=== PATIENT | male | born 1955 | race Caucasian/White ===

== ENCOUNTER 2016-06-11 06:20 | Emergency (ER) | payer MEDICARE, MEDICAID ==
--- NOTE | 2016-06-11 07:06 | ER Document Report ---
HPI - HPI Patient complains to provider of: left low back pain Onset: Other - chronic Onset/Duration: Sudden Pain Level: 5 Context: 61 year old male with chronic back pain which is worse past few days. No IV drug use, no fever or chills, no abdominal pain. Had sex the other day which aggavated it. On vacation here in [place]. No saddle anesthesia. No radiculopathy. Associated Symptoms: None Exacerbated by: Movement Relieved by: Other - supine or stadning - ROS ROS below otherwise negative: Yes Systems Reviewed and Negative: Yes All other systems reviewed and negative - REPRODUCTIVE Reproductive: DENIES: : - DERM Skin Color: Normal Skin Problems: None Past Medical History - General Information source: Patient - Social History Smoking Status: Never Smoker Frequency of alcohol use: None Family History: Other - Unable to obtain Pulmonary Medical History: Denies: Hx Tuberculosis Neurological Medical History: Reports: Hx Seizures Renal/ Medical History: Denies: Hx Peritoneal Dialysis Surgical Hx: Negative - Immunizations Hx Diphtheria, Pertussis, Tetanus Vaccination: - Unknown Vertical Provider Document - CONSTITUTIONAL Agree With Documented VS: Yes Exam Limitations: No Limitations General Appearance: Mild Distress - NECK Neck: Supple - RESPIRATORY Respiratory: Breath Sounds Normal, No Respiratory Distress O2 Sat by Pulse Oximetry: 95 - CARDIOVASCULAR Cardiovascular: Regular Rate, Regular Rhythm - GI/ABDOMEN Gastrointestinal: Abdomen Soft, Abdomen Non-Tender - BACK Back: Normal Inspection Notes: tender leaft lumbar muscles. - MUSCULOSKELETAL/EXTREMETIES Musculoskeletal/Extremeties: MAEW, FROM - NEURO Level of Consciousness: Awake, Alert, Appropriate Motor/Sensory: No Motor Deficit, No Sensory Deficit Deep Tendon Reflexes: 2+ - wilder ankle and patellar - DERM Integumentary: Warm, Dry, No Rash Course - Vital Signs Vital signs: Temp Pulse Resp BP Pulse Ox 97.6 F 69 14 121/86 H 95 06/11/16 06:29 06/11/16 06:29 06/11/16 06:29 06/11/16 06:29 06/11/16 06:29 Discharge - Discharge Clinical Impression: exacerbation of chronic lt low back pain Condition: Good Disposition: HOME, SELF-CARE Instructions: Low Back Pain ([facility]), Warm Packs ([facility]), Oral Narcotic Medication ( [facility]), Muscle Strain ([facility]), Steroid Medication Additional Instructions: Warm compress Return to the emergency room if worse while visiting to this area Please complete the patient satisfaction survey if you get one, and return it.. If you do not receive a survey, then you can go to the [facility] website, [email or web address] and place your comments about your very good care. Thank you very much. It was a pleasure being your medical provider today. Prescriptions: Oxycodone HCl/Acetaminophen [Percocet 10-325 Mg Tablet] 1 each PO Q4HP PRN #15 tablet PRN Reason: Prednisone [Deltasone 10 mg Tablet] 10 mg PO ASDIR PRN #15 tablet PRN Reason: Referrals: ERIC ALCANTAR MD [Primary Care Provider] - Follow up as needed
[2016-06-11] MEDS ORDERED: ONDANSETRON 4 MG TAB.RAPDIS PO ONE (07:34)
[2016-06-11] MEDS ORDERED: PREDNISONE 20 MG TABLET PO ONE (07:34)
[2016-06-11] MEDS ORDERED: OXYCODONE-ACETAMINOPHEN 5-325 MG TABLET PO ONE (07:34)
[2016-06-11 08:28] VITALS: BP 144/91
== END 2016-06-11 08:26 | disposition home or self-care (01) ==
LOC: ER 06:20
DX: G89.29 Other chronic pain (principal); M54.5 Low back pain
CPT/HCPCS: 99283; A9270 ×3; J7512; S0119

== ENCOUNTER 2018-02-19 10:38 | Observation (INO) | payer MEDICARE, MEDICAID ==
--- NOTE | 2018-02-19 11:03 | EKG REPORT ---
SEVERITY:- NORMAL ECG - SINUS RHYTHM : Confirmed by: Jose Valle MD 19-Feb-2018 11:02:17
[2018-02-19] MEDS ORDERED: HYDROCODONE/ACETAMINOPHEN 5-325 MG TABLET PO ONE (11:06)
[2018-02-19] MEDS ORDERED: ASPIRIN 81 MG TABLET, CHEWABLE PO ONE (11:06)
--- NOTE | 2018-02-19 11:09 | ER Document Report ---
ED Cardiac - General Chief Complaint: Chest Pain Stated Complaint: CHEST PAIN Time Seen by Provider: 02/19/18 11:02 Notes: History of Present Illness Chief Complaint:[ chest pain] [ 63 years old male was sent over here by Dr. Alcantar, for direct admit. The patient was having pain over the left precordial region for the last 2 days. Sometimes exacerbated, sharp in nature. Nonradiating. Not associated with any left arm numbness tingling sensation nausea vomiting. Change of position increases the pain.] History obtained from [patient] Symptoms began:[ today] Onset: [gradual] Timing: [constant, now gone] Quality: ["pain"] Intensity: [moderate] Location: [Left anterior lower chest wall] Radiation: [none] Migration: [none] Aggravating factors: [none] Relieving factors: [none] Major PE risk factors: [none] Major aortic dissection risk factors: [none] Review of Systems: All other systems negative as reviewed. CONSTITUTIONAL No fever, No chills, No sweats. EYES No eye pain. ENT No URI symptoms, No sore throat, No ear pain. CARDIOVASCULAR + chest pain, No palpitations, No edema. RESPIRATORY No Cough, No SOB, No wheezing. GASTROINTESTINAL No abdominal pain, No nausea, No diarrhea, No vomiting, No GI Bleeding. GENITOURINARY No UTI symptoms. MUSCULOSKELETAL No back pain, No calf swelling, No calf pain. SKIN No Rash. NEUROLOGIC No Headache Physical Exam CONSTITUTIONAL Vital signs reviewed, Patient appears comfortable, Alert and oriented X 3, Normal stature. HEAD Atraumatic, Normocephalic. EYES Eyes are normal to inspection, No discharge from eyes, Extraocular muscles intact, Sclera are normal, Conjunctiva are normal. ENT Ears normal to inspection, Nose examination normal, Posterior pharynx normal, Mouth normal to inspection. NECK Normal ROM, No jugular venous distention, No meningeal signs, no carotid bruit. RESPIRATORY CHEST Chest is anteriorly over the seventh and eighth ribs close to the sternum extremely tender on palpation., Breath sounds normal, No respiratory distress. CARDIOVASCULAR RRR, No murmurs, Normal S1 S2, No rub, No gallop. ABDOMEN Abdomen is nontender, No pulsatile masses, No other masses, Bowel sounds normal, No distension, No peritoneal signs, No hernias. BACK There is no CVA Tenderness, There is no tenderness to palpation, Normal inspection. UPPER EXTREMITY Inspection normal, No cyanosis, No clubbing, No edema, 2+ radial pulses. LOWER EXTREMITY Inspection normal, No cyanosis, No clubbing, No edema, No calf tenderness, 2+ femoral pulses. NEURO No focal motor deficits, No focal sensory deficits, Speech normal. SKIN Skin is warm, Skin is dry, Skin is normal color. LYMPHATIC No adenopathy in neck. PSYCHIATRIC Normal affect. - HPI Notes: Dictated - Related Data Allergies/Adverse Reactions: No Known Allergies Allergy (Verified 02/19/18 10:39) Past Medical History - Social History Smoking Status: Current Every Day Smoker Chew tobacco use (# tins/day): No Frequency of alcohol use: None Drug Abuse: None Lives with: Family Family History: Reviewed & Not Pertinent, Other - Unable to obtain Patient has suicidal ideation: No Patient has homicidal ideation: No - Past Medical History Cardiac Medical History: Reports: Hx Hypercholesterolemia, Hx Hypertension Pulmonary Medical History: Denies: Hx Tuberculosis Neurological Medical History: Reports: Hx Seizures Renal/ Medical History: Denies: Hx Peritoneal Dialysis Psychiatric Medical History: Reports: Hx Depression - anxiety - Immunizations Hx Diphtheria, Pertussis, Tetanus Vaccination: - Unknown Review of Systems - Review of Systems Notes: Dictated Physical Exam - Vital signs Vitals: Temp Pulse Resp BP Pulse Ox 97.8 F 65 16 134/84 H 96 02/19/18 10:47 02/19/18 10:47 02/19/18 10:47 02/19/18 10:47 02/19/18 10:47 - Notes Notes: Dictated Course - Vital Signs Vital signs: Temp Pulse Resp BP Pulse Ox 97.8 F 65 16 134/84 H 96 02/19/18 10:47 02/19/18 10:47 02/19/18 10:47 02/19/18 10:47 02/19/18 10:47 Discharge - Discharge Clinical Impression: Chest pain, rule out acute myocardial infarction Condition: Fair Disposition: ADMITTED INPATIENT Admitting Provider: Martir Unit Admitted: [facility] Referrals: ERIC ALCANTAR MD [Primary Care Provider] - Follow up as needed
[2018-02-19] MEDS ORDERED: CLOPIDOGREL BISULFATE 300 MG TABLET PO ONE ×2 (12:00→15:30)
[2018-02-19 12:24] LABS: HEMATOCRIT 42.1 % (37.9-51.0); HEMOGLOBIN 14.6 g/dL (13.5-17.0); LYMPHOCYTES % (AUTO) 36.9 % (13-45); MEAN CORPUSCULAR HEMOGLOBIN 32.7 pg (27.0-33.4); MEAN CORPUSCULAR HGB CONC 34.7 g/dL (32.0-36.0); MEAN CORPUSCULAR VOLUME 94 fl (80-97); PLATELET COUNT 239 10^3/uL (150-450); RED BLOOD COUNT 4.47 10^6/uL (4.35-5.55); SEGMENTED NEUTROPHILS % (AUTO) 52.8 % (42-78); WHITE BLOOD COUNT 4.8 10^3/uL (4.0-10.5)
[2018-02-19 12:25] LABS: ABSOLUTE EOSINOPHILS # (AUTO) 0.1 10^3/uL (0.0-0.6); ABSOLUTE LYMPHOCYTES (AUTO) 1.8 10^3/uL (0.5-4.7); ABSOLUTE MONOCYTES (AUTO) 0.4 10^3/uL (0.1-1.4); ABSOLUTE NEUT (AUTO) 2.5 10^3/uL (1.7-8.2); BASOPHILS % (AUTO) 0.9 % (0-2); EOSINOPHILS % (AUTO) 1.5 % (0-6); MONOCYTES % (AUTO) 7.9 % (3-13); TOTAL CELLS COUNTED % (AUTO) 100 %
--- NOTE | 2018-02-19 12:35 | RADIOLOGY REPORT (SQ) ---
EXAM DESCRIPTION: CHEST SINGLE VIEW COMPLETED DATE/TIME: 02/19/2018 12:19 pm REASON FOR STUDY: Chest pain COMPARISON: 06/10/2013 EXAM PARAMETERS: NUMBER OF VIEWS: One view. TECHNIQUE: Single frontal radiographic view of the chest acquired. RADIATION DOSE: NA LIMITATIONS: None. FINDINGS: LUNGS AND PLEURA: No opacities, masses or pneumothorax. No pleural effusion. MEDIASTINUM AND HILAR STRUCTURES: No masses. Contour normal. HEART AND VASCULAR STRUCTURES: Heart normal in size. Normal vasculature. BONES: No acute findings. HARDWARE: None in the chest. OTHER: No other significant finding. IMPRESSION: NO ACUTE RADIOGRAPHIC FINDING IN THE CHEST. TECHNICAL DOCUMENTATION: JOB ID: [id number] [employer]- All Rights Reserved Reading location - IP/workstation name: [email or web address]
[2018-02-19 12:45] LABS: ALANINE AMINOTRANSFERASE 31 U/L (21-72); ALBUMIN 4.7 g/dL (3.5-5.0); ALKALINE PHOSPHATASE 82 U/L (38-126); ANION GAP 8 (5-19); ASPARTATE AMINO TRANSFERASE 24 U/L (17-59); BILIRUBIN,DIRECT 0.1 mg/dL (0.0-0.4); BILIRUBIN,TOTAL 0.4 mg/dL (0.2-1.3); BLOOD UREA NITROGEN 17 mg/dL (7-20); CALCIUM 9.6 mg/dL (8.4-10.2); CARBON DIOXIDE 31 mmol/L (22-30); CHLORIDE 99 mmol/L (98-107); CREATINE KINASE 67 U/L (55-170); GLUCOSE 98 mg/dL (75-110); POTASSIUM 4.7 mmol/L (3.6-5.0); SODIUM 137.6 mmol/L (137-145); TOTAL PROTEIN 7.1 g/dL (6.3-8.2)
[2018-02-19 12:56] LABS: CREATINE KINASE MB 0.49 ng/mL (<4.55)
[2018-02-19 13:02] LABS: FREE T4 (FREE THYROXINE) 0.91 ng/dL (0.78-2.19); TROPONIN I < 0.012 ng/mL
[2018-02-19 13:15] LABS: THYROID STIMULATING HORMONE 1.44 uIU/mL (0.47-4.68)
[2018-02-19 17:28] LABS: APPEARANCE,URINE CLEAR; BILIRUBIN,URINE NEGATIVE (NEGATIVE); COLOR,URINE YELLOW; GLUCOSE, URINE NEGATIVE (NEGATIVE); KETONES,URINE NEGATIVE (NEGATIVE); LEUKOCYTE ESTERASE,URINE NEGATIVE (NEGATIVE); NITRITE,URINE NEGATIVE (NEGATIVE); PROTEIN,URINE NEGATIVE (NEGATIVE); URINE SPECIFIC GRAVITY 1.016; UROBILINOGEN,URINE NEGATIVE mg/dL (<2.0)
[2018-02-19] MEDS ORDERED: (PENDING PHARMACY ID) (Omega-3 Fatty Acids/Fish Oil [Fish Oil 1,000 Mg Capsule] 1 EACH) PO SCH (18:45)
[2018-02-19] MEDS ORDERED: (PENDING PHARMACY ID) (Losartan/Hydrochlorothiazide [Hyzaar 100-12.5 Tablet] 1 EACH) PO SCH (18:45)
[2018-02-19] MEDS: ASCORBIC ACID 500 MG TABLET PO SCH (19:54)
[2018-02-19] MEDS: VITAMIN E (DL, ACETATE) 400 UNIT CAPSULE PO SCH (19:54)
[2018-02-19] MEDS: DULOXETINE HCL 30 MG CAPSULE.DR PO SCH (19:55)
[2018-02-19] MEDS: OMEGA-3 ACID ETHYL ESTERS 1 GM CAPSULE PO SCH (19:55)
[2018-02-19] MEDS: LOSARTAN POTASSIUM 50 MG TABLET PO SCH (19:55)
[2018-02-19] MEDS: HYDROCHLOROTHIAZIDE 25 MG TABLET PO SCH (19:55)
[2018-02-19 19:57] LABS: CREATINE KINASE MB 0.42 ng/mL (<4.55)
[2018-02-19] MEDS: ALPRAZOLAM 0.5 MG TABLET PO SCH (19:57)
[2018-02-19 20:01] LABS: TROPONIN I < 0.012 ng/mL
--- NOTE | 2018-02-19 20:08 | PDOC H&P ---
History of Present Illness Admission Date/PCP: 02/19/18 11:47 ERIC ALCANTAR MD History of Present Illness: ANTHONY MCKENNA is a 63 year old male, He came to the office today for ev aluation of chest pain for the last 2 days, the chest pain is left-sided, a 12- lead EKG was done, it was sinus rhythm with Q waves in V1 through V3, He was admitted directly from the office into the hospital for further evaluation of the chest pain. In the hospital he was evaluated the twelve-lead EKG done was sinus rhythm but no Q wave deflation was demonstrated on the EKG done in the hospital, the EKG was also compare to EKG from 2014 about 5 years ago and there was no change from the EKG done in 2014. 3 sets of cardiac enzymes was negative for acute myocardiac infarction. He was supposed to have a Cardiolite Lexiscan stress test this morning but he unfortunately had breakfast so the test was canceled, it was felt that he could be discharged home for him to have outpatient stress test. The chest pain he described is atypical in character, the chest pain is not provoked by activity or emotional outburst, the chest pain is non- pressure-like, he said the chest pain feels like soreness of his chest Past Medical History Cardiac Medical History: Reports: Hyperlipidema, Hypertension Neurological Medical History: Reports: Seizures Psychiatric Medical History: Reports: Depression - anxiety Social History Lives with: Family Smoking Status: Current Every Day Smoker Cigarettes Packs Per Day: 0.5 Frequency of Alcohol Use: None Hx Recreational Drug Use: No Drugs: None - Advance Directive Resuscitation Status: Full Code Family History Family History: Reviewed & Not Pertinent, Other - Unable to obtain Parental Family History Reviewed: Yes Children Family History Reviewed: Yes Sibling(s) Family History Reviewed.: Yes Medication/Allergy Home Medications: Losartan/Hydrochlorothiazide [Hyzaar 100-12.5 Tablet] 1 each PO DAILY #30 tablet 06/11/13 Alprazolam [Xanax] 1 mg PO BID 02/19/18 Ascorbic Acid [Vitamin C] 1,000 mg PO DAILY 02/19/18 Aspirin [Aspirin 81 mg Chewable Tablet] 81 mg PO DAILY 02/19/18 Atorvastatin Calcium [Lipitor 20 mg Tablet] 20 mg PO QHS 02/19/18 Carbamazepine [Tegretol 200 mg Tablet] 400 mg PO TID 02/19/18 Duloxetine HCl [Cymbalta] 60 mg PO DAILY 02/19/18 [place]-3 Fatty Acids/Fish Oil [Fish Oil 1,000 mg Capsule] 1 each PO DAILY 02/19/18 Vitamin E (Dl, Acetate) [Vitamin E 400 Unit Capsule] 400 unit PO DAILY 02/19/18 Allergies/Adverse Reactions: No Known Allergies Allergy (Verified 02/19/18 13:17) Review of Systems Constitutional: ABSENT: chills, fever(s), headache(s), weight gain, weight loss Eyes: ABSENT: visual disturbances Ears: ABSENT: hearing changes Cardiovascular: PRESENT: chest pain Respiratory: ABSENT: cough, hemoptysis Gastrointestinal: ABSENT: abdominal pain, constipation, diarrhea, hematemesis, hematochezia, nausea, vomiting Genitourinary: ABSENT: dysuria, hematuria Musculoskeletal: ABSENT: joint swelling Integumentary: ABSENT: rash, wounds Neurological: ABSENT: abnormal gait, abnormal speech, confusion, dizziness, focal weakness, syncope Psychiatric: ABSENT: anxiety, depression, homidical ideation, suicidal ideation Endocrine: ABSENT: cold intolerance, heat intolerance, menstrual abnormalities, polydipsia, polyuria Hematologic/Lymphatic: ABSENT: easy bleeding, easy bruising, lymphadenopathy Physical Exam Vital Signs: Temp Pulse Resp BP Pulse Ox 97.9 F 61 18 134/75 H 100 02/19/18 18:04 02/19/18 18:53 02/19/18 18:04 02/19/18 18:04 02/19/18 18:04 Intake & Output 02/18/18 02/19/18 02/20/18 06:59 06:59 06:59 Weight 96.7 kg General appearance: PRESENT: no acute distress, well-developed, well-nourished Head exam: PRESENT: atraumatic, normocephalic Eye exam: PRESENT: conjunctiva pink, EOMI, PERRLA Ear exam: PRESENT: normal external ear exam Mouth exam: PRESENT: moist, tongue midline Neck exam: PRESENT: full ROM Respiratory exam: PRESENT: clear to auscultation wilder Cardiovascular exam: PRESENT: RRR, +S1, +S2 Vascular exam: PRESENT: normal capillary refill GI/Abdominal exam: PRESENT: normal bowel sounds, soft Rectal exam: PRESENT: deferred Neurological exam: PRESENT: alert, awake, oriented to person, oriented to place, oriented to time, oriented to situation, CN II-XII grossly intact Psychiatric exam: PRESENT: appropriate affect, normal mood Skin exam: PRESENT: dry, intact, warm Results Laboratory Results: 02/19/18 12:05 02/19/18 12:05 02/19/18 02/19/18 02/19/18 12:05 12:05 12:05 WBC 4.8 RBC 4.47 Hgb 14.6 Hct 42.1 MCV 94 MCH 32.7 MCHC 34.7 RDW 13.0 Plt Count 239 Seg Neutrophils % 52.8 Lymphocytes % 36.9 Monocytes % 7.9 Eosinophils % 1.5 Basophils % 0.9 Absolute Neutrophils 2.5 Absolute Lymphocytes 1.8 Absolute Monocytes 0.4 Absolute Eosinophils 0.1 Absolute Basophils 0.0 Sodium 137.6 Potassium 4.7 Chloride 99 Carbon Dioxide 31 H Anion Gap 8 BUN 17 Creatinine 0.86 Est GFR ( Amer) > 60 Est GFR (Non-Af Amer) > 60 Glucose 98 Calcium 9.6 Total Bilirubin 0.4 AST 24 ALT 31 Alkaline Phosphatase 82 Total Protein 7.1 Albumin 4.7 TSH 1.44 Free T4 0.91 Urine Color Urine Appearance Urine pH Ur Specific [place] Urine Protein Urine Glucose (UA) Urine Ketones Urine Blood Urine Nitrite Ur Leukocyte Esterase Urine WBC (Auto) Urine RBC (Auto) 02/19/18 16:55 WBC RBC Hgb Hct MCV MCH MCHC RDW Plt Count Seg Neutrophils % Lymphocytes % Monocytes % Eosinophils % Basophils % Absolute Neutrophils Absolute Lymphocytes Absolute Monocytes Absolute Eosinophils Absolute Basophils Sodium Potassium Chloride Carbon Dioxide Anion Gap BUN Creatinine Est GFR ( Amer) Est GFR (Non-Af Amer) Glucose Calcium Total Bilirubin AST ALT Alkaline Phosphatase Total Protein Albumin TSH Free T4 Urine Color YELLOW Urine Appearance CLEAR Urine pH 5.0 Ur Specific [place] 1.016 Urine Protein NEGATIVE Urine Glucose (UA) NEGATIVE Urine Ketones NEGATIVE Urine Blood NEGATIVE Urine Nitrite NEGATIVE Ur Leukocyte Esterase NEGATIVE Urine WBC (Auto) 0 Urine RBC (Auto) 0 02/19/18 02/19/18 02/19/18 12:05 12:05 19:02 Creatine Kinase 67 56 CK-MB (CK-2) 0.49 Troponin I < 0.012 02/19/18 19:02 Creatine Kinase CK-MB (CK-2) 0.42 Troponin I < 0.012 Impressions: Chest X-Ray 02/19/18 11:06 IMPRESSION: NO ACUTE RADIOGRAPHIC FINDING IN THE CHEST. Assessment & Plan - Diagnosis (1) Chest pain, rule out acute myocardial infarction Is this a current diagnosis for this admission?: Yes Plan: Patient has chest pain is atypical in character, patient states of cardiac enzymes was negative for acute myocardial infarction, he will need outpatient stress test, the soreness of his chest is probably from muscular etiology
[2018-02-19 21:00] LABS: ALANINE AMINOTRANSFERASE 32 U/L (21-72); ALKALINE PHOSPHATASE 67 U/L (38-126); ASPARTATE AMINO TRANSFERASE 21 U/L (17-59); BILIRUBIN,DIRECT 0.1 mg/dL (0.0-0.4); BILIRUBIN,TOTAL 0.3 mg/dL (0.2-1.3); TOTAL PROTEIN 6.2 g/dL (6.3-8.2)
[2018-02-19] MEDS ORDERED: ATORVASTATIN CALCIUM 80 MG TABLET PO SCH (22:00)
[2018-02-19] MEDS ORDERED: CARBAMAZEPINE 200 MG TABLET PO SCH (22:00)
[2018-02-20 03:54] LABS: CREATINE KINASE MB 0.28 ng/mL (<4.55)
[2018-02-20 04:01] LABS: TROPONIN I < 0.012 ng/mL
[2018-02-20] MEDS: ALPRAZOLAM 0.5 MG TABLET PO SCH (05:09)
[2018-02-20] MEDS: OMEGA-3 ACID ETHYL ESTERS 1 GM CAPSULE PO SCH (09:37)
[2018-02-20] MEDS: ASCORBIC ACID 500 MG TABLET PO SCH (09:37)
[2018-02-20] MEDS: VITAMIN E (DL, ACETATE) 400 UNIT CAPSULE PO SCH (09:37)
[2018-02-20] MEDS: HYDROCHLOROTHIAZIDE 25 MG TABLET PO SCH (09:38)
[2018-02-20] MEDS: DULOXETINE HCL 30 MG CAPSULE.DR PO SCH (09:38)
[2018-02-20] MEDS: LOSARTAN POTASSIUM 50 MG TABLET PO SCH (09:38)
[2018-02-20] MEDS ORDERED: ASPIRIN 81 MG TABLET, ENT COATED PO SCH (10:00)
[2018-02-20] MEDS ORDERED: CLOPIDOGREL BISULFATE 75 MG TABLET PO SCH (10:00)
[2018-02-20 16:26] VITALS: BP 122/67
--- NOTE | 2018-02-20 19:22 | PDOC DISCHARGE SUMMARY ---
General - Admit/Disc Date/PCP Admission Date/Primary Care Provider: 02/19/18 11:47 ERIC ALCANTAR MD Discharge Date: 02/20/18 - Discharge Diagnosis (1) Chest pain, rule out acute myocardial infarction Is this a current diagnosis for this admission?: Yes - Additional Information Resuscitation Status: Full Code Discharge Diet: As Tolerated Discharge Activity: Activity As Tolerated, Balance Activity w/Rest Home Medications: Losartan/Hydrochlorothiazide [Hyzaar 100-12.5 Tablet] 1 each PO DAILY #30 tablet 06/11/13 Alprazolam [Xanax] 1 mg PO BID 02/19/18 Ascorbic Acid [Vitamin C] 1,000 mg PO DAILY 02/19/18 Aspirin [Aspirin 81 mg Chewable Tablet] 81 mg PO DAILY 02/19/18 Atorvastatin Calcium [Lipitor 20 mg Tablet] 20 mg PO QHS 02/19/18 Carbamazepine [Tegretol 200 mg Tablet] 400 mg PO TID 02/19/18 Duloxetine HCl [Cymbalta] 60 mg PO DAILY 02/19/18 [place]-3 Fatty Acids/Fish Oil [Fish Oil 1,000 mg Capsule] 1 each PO DAILY 02/19/18 Vitamin E (Dl, Acetate) [Vitamin E 400 Unit Capsule] 400 unit PO DAILY 02/19/18 History of Present Illness History of Present Illness: ANTHONY MCKENNA is a 63 year old male, He came to the office today for evaluation of chest pain for the last 2 days, the chest pain is left-sided, a 12-lead EKG was done, it was sinus rhythm with Q waves in V1 through V3, He was admitted directly from the office into the hospital for further evaluation of the chest pain. In the hospital he was evaluated the twelve-lead EKG done was sinus rhythm but no Q wave deflation was demonstrated on the EKG done in the [facility], the EKG was also compare to EKG from 2014 about 5 years ago and there was no change from the EKG done in 2014. 3 sets of cardiac enzymes was negative for acute myocardiac infarction. He was supposed to have a Cardiolite Lexiscan stress test this morning but he unfortunately had breakfast so the test was canceled, it was felt that he could be discharged home for him to have outpatient stress test. The chest pain he described is atypical in character, the chest pain is not provoked by activity or emotional outburst, the chest pain is non- pressure-like, he said the chest pain feels like soreness of his chest Hospital Course Hospital Course: Patient was admitted for the management and evaluation of chest pain, 3 sets of cardiac enzymes was negative for acute myocardial infarction.. Physical Exam Vital Signs: Temp Pulse Resp BP Pulse Ox 98.0 F 62 18 122/67 97 02/20/18 17:55 02/20/18 17:55 02/20/18 17:55 02/20/18 17:55 02/20/18 17:55 Intake & Output 02/19/18 02/20/18 02/21/18 06:59 06:59 06:59 Weight 97.5 kg General appearance: PRESENT: no acute distress Head exam: PRESENT: atraumatic, normocephalic Eye exam: PRESENT: conjunctiva pink, EOMI, PERRLA Ear exam: PRESENT: normal external ear exam Mouth exam: PRESENT: moist, tongue midline Neck exam: PRESENT: full ROM Respiratory exam: PRESENT: clear to auscultation wilder Cardiovascular exam: PRESENT: RRR, +S1, +S2 Pulses: PRESENT: normal dorsalis pedis pul, +2 pedal pulses bilateral Vascular exam: PRESENT: normal capillary refill GI/Abdominal exam: PRESENT: normal bowel sounds, soft Rectal exam: PRESENT: deferred Neurological exam: PRESENT: alert, CN II-XII grossly intact Psychiatric exam: PRESENT: appropriate affect, normal mood Skin exam: PRESENT: dry, intact, warm Results Laboratory Results: 02/19/18 12:05 02/19/18 12:05 02/19/18 19:02 Total Bilirubin 0.3 AST 21 ALT 32 Alkaline Phosphatase 67 Total Protein 6.2 L Albumin 4.0 02/19/18 02/19/18 02/19/18 12:05 12:05 19:02 Creatine Kinase 67 56 CK-MB (CK-2) 0.49 Troponin I < 0.012 02/19/18 02/20/18 02/20/18 19:02 03:12 03:12 Creatine Kinase 50 L CK-MB (CK-2) 0.42 0.28 Troponin I < 0.012 < 0.012 Impressions: Chest X-Ray 02/19/18 11:06 IMPRESSION: NO ACUTE RADIOGRAPHIC FINDING IN THE CHEST. Qualifiers - * PATIENT BEING DISCHARGED WITH ANY OF THE FOLLOWING DIAGNOSIS: No
== END 2018-02-20 18:12 | disposition home or self-care (01) ==
LOC: ER 10:38 → EH 11:47 → INTOOBSV 11:47 → 3W 18:10
PROVIDERS: ADMIT Internal Medicine; ATTEND Internal Medicine
DX: R07.89 Other chest pain (principal); F17.210 Nicotine dependence, cigarettes, uncomplicated; I10 Essential (primary) hypertension; E78.5 Hyperlipidemia, unspecified; Z79.899 Other long term (current) drug therapy; Z79.82 Long term (current) use of aspirin
CPT/HCPCS: 93005; 99285; 36415 ×2; 84439; 82553 ×2; 82550 ×2; 84443; 80156; 85025; 80076; 80053; 81001; 84484 ×2; 71045; 93010; A9270 ×13; J3490

== ENCOUNTER 2018-09-27 09:47 | Emergency (ER) | payer MEDICARE, MEDICAID ==
[2018-09-27 09:54] VITALS: BP 126/70
[2018-09-27] MEDS ORDERED: HYDROCODONE/ACETAMINOPHEN 5-325 MG TABLET PO ONE (10:21)
--- NOTE | 2018-09-27 10:23 | ER Document Report ---
HPI - HPI Patient complains to provider of: left ankle injury Time Seen by Provider: 09/27/18 10:08 Onset: Last week Onset/Duration: Persistent Quality of pain: Achy Pain Level: 4 Context: Patient states that he was working in extreme [place] trying to repair an air conditioner last week and. Patient states he was on top of his camper. Patient states that he passed out and fell off the roof and injured his left foot and ankle. Patient states that he was not having any chest pain headache pain or shortness of breath whenever he passed out. Patient states that he only wants to be evaluated for his foot and ankle pain as this has continued to give him pain with ambulation. Patient attributes his syncopal episode to working in extreme heat. Patient denies any additional syncopal episodes since last weekend. Associated Symptoms: Other - left ankle pain. denies: Body/muscle aches, Chest pain, Nonproductive cough, Productive cough, Fever, Headache, Hurts to breath Exacerbated by: Standing, Movement, Walking Relieved by: Denies Similar symptoms previously: No Recently seen / treated by doctor: No - ROS ROS below otherwise negative: Yes Systems Reviewed and Negative: Yes All other systems reviewed and negative - CONSTITUTIONAL Constitutional: DENIES: Fever, Chills - EENT EENT: DENIES: Sore Throat, Ear Pain, Eye problems - NEURO Neurology: DENIES: Headache, Weakness, Vision blurred, Dizzinesss / Vertigo - CARDIOVASCULAR Cardiovascular: DENIES: Chest pain - RESPIRATORY Respiratory: DENIES: Trouble Breathing, Coughing - GASTROINTESTINAL Gastrointestinal: DENIES: Abdominal Pain, Nausea, Patient vomiting - URINARY Urinary: DENIES: Dysuria, Urgency, Frequency - MUSCULOSKELETAL Musculoskeletal: REPORTS: Extremity pain - left lower extremity. DENIES: Back Pain, Neck Pain - DERM Skin Color: Normal Skin Problems: None Past Medical History - General Information source: Patient - Social History Smoking Status: Current Every Day Smoker Chew tobacco use (# tins/day): No Smoking Education Provided: Yes Frequency of alcohol use: None Drug Abuse: None Lives with: Spouse/Significant other Family History: Reviewed & Not Pertinent, Other - Unable to obtain Patient has suicidal ideation: No Patient has homicidal ideation: No - Past Medical History Cardiac Medical History: Reports: Hx Hypercholesterolemia, Hx Hypertension Pulmonary Medical History: Denies: Hx Tuberculosis Neurological Medical History: Reports: Hx Seizures Renal/ Medical History: Denies: Hx Peritoneal Dialysis Psychiatric Medical History: Reports: Hx Depression - anxiety Past Surgical History: Reports: Hx Herniorrhaphy - Immunizations Hx Diphtheria, Pertussis, Tetanus Vaccination: - Unknown Vertical Provider Document - CONSTITUTIONAL Agree With Documented VS: Yes Exam Limitations: No Limitations General Appearance: WD/WN, No Apparent Distress - INFECTION CONTROL TRAVEL OUTSIDE OF THE [place] IN LAST 30 DAYS: No - HEENT HEENT: Atraumatic, Normocephalic - NECK Neck: Normal Inspection, Supple - RESPIRATORY Respiratory: Breath Sounds Normal, No Respiratory Distress - CARDIOVASCULAR Cardiovascular: Regular Rate, Regular Rhythm Pulses: Normal: Dorsalis pedis - MUSCULOSKELETAL/EXTREMETIES Musculoskeletal/Extremeties: MAEW, Tender - Left ankle tenderness over bilateral malleolar area with 2+ edema. Patient with left midfoot tenderness, patient with left calcaneus tenderness. No obvious deformity, Edema - NEURO Level of Consciousness: Awake, Alert, Appropriate Motor/Sensory: No Motor Deficit - DERM Integumentary: Warm, Dry, No Rash Course - Re-evaluation Re-evalutation: 09/27/18 10:22 Offered patient evaluation for syncopal episode that he had last week. Patient denies having any chest pain, lightheadedness, dizziness or shortness of breath. Patient does not want to be evaluated other than for his foot and ankle pain that has persisted since his fall. - Vital Signs Vital signs: Temp Pulse Resp BP Pulse Ox 98.0 F 75 14 126/70 H 94 09/27/18 09:51 09/27/18 09:51 09/27/18 09:51 09/27/18 09:51 09/27/18 09:51 - Diagnostic Test Radiology reviewed: Image reviewed, Reports reviewed Procedures - Immobilization Left Foot Pre-Proc Neuro Vasc Exam: Normal Immobilizer type: Posterior ankle Performed by: PCT Post-Proc Neuro Vasc Exam: Normal Alignment checked and good: Yes Discharge - Discharge Clinical Impression: Fall Qualifiers: Encounter type: initial encounter Qualified Code(s): W19.XXXA - Unspecified fall, initial encounter Left ankle sprain Qualifiers: Encounter type: initial encounter Involved ligament of ankle: unspecified ligament Qualified Code(s): S93.402A - Sprain of unspecified ligament of left ankle, initial encounter Sprain of left foot Qualifiers: Encounter type: initial encounter Qualified Code(s): S93.602A - Unspecified sprain of left foot, initial encounter Calcaneus fracture, left Qualifiers: Encounter type: initial encounter Calcaneus location: unspecified portion of calcaneus Fracture type: closed Fracture alignment: nondisplaced Qualified Code(s): S92.002A - Unspecified fracture of left calcaneus, initial encounter for closed fracture Condition: Stable Disposition: HOME, SELF-CARE Instructions: Fracture Calcaneus ([facility]), Ice & Elevation ([facility]), Oral Narcotic Medication ([facility]), Splint Precautions ([facility]), Sprained Ankle ([facility]) Additional Instructions: Return immediately for any new or worsening symptoms Followup with your primary care provider, call tomorrow to make a followup appointment Follow-up with orthopedics, call Saturday for an appointment Do not take the Ciales with your Xanax, only take one medication or the other to avoid adverse interactions Prescriptions: Hydrocodone/Acetaminophen [Ciales 5-325 mg Tablet] 1 tab PO Q6 PRN #15 tablet PRN Reason: Forms: Smoking Cessation Education Referrals: ERIC ALCANTAR MD [Primary Care Provider] - Follow up as needed [facility] [Provider Group] - 09/29/18
--- NOTE | 2018-09-27 11:34 | RADIOLOGY REPORT (SQ) ---
EXAM DESCRIPTION: OS CALCIS/HEEL LEFT COMPLETED DATE/TIME: 09/27/2018 10:51 am REASON FOR STUDY: fall, L foot/ankle pain COMPARISON: None. NUMBER OF VIEWS: Two views. TECHNIQUE: Plantar and lateral images acquired of the left calcaneous. LIMITATIONS: None. FINDINGS: MINERALIZATION: Normal. BONES: Faint lucency in the calcaneal body on the frontal projection, possible nondisplaced fracture. JOINTS: No effusions. SOFT TISSUES: No soft tissue swelling. No foreign body. OTHER: No other significant finding. IMPRESSION: Faint lucency in the calcaneal body on the frontal projection, possible nondisplaced fra cture. TECHNICAL DOCUMENTATION: JOB ID: [id number] [place]-72 2010 [employer]- All Rights Reserved Reading location - IP/workstation name: [email or web address]
--- NOTE | 2018-09-27 11:36 | RADIOLOGY REPORT (SQ) ---
EXAM DESCRIPTION: ANKLE LEFT COMPLETE COMPLETED DATE/TIME: 09/27/2018 10:51 am REASON FOR STUDY: fall, L foot/ankle pain COMPARISON: None. EXAM PARAMETERS: NUMBER OF VIEWS: Three views. TECHNIQUE: AP, lateral and oblique radiographic images acquired of the left ankle. LIMITATIONS: None. FINDINGS: MINERALIZATION: Normal. BONES: No acute fracture or dislocation. No worrisome bone lesions. JOINTS: No effusion. SOFT TISSUES: Mild soft tissue swelling. No radiopaque foreign body. OTHER: No other significant finding. IMPRESSION: No fracture identified. TECHNICAL DOCUMENTATION: JOB ID: [id number] [place]-72 2010 [employer]- All Rights Reserved Reading location - IP/workstation name: [email or web address]
--- NOTE | 2018-09-27 11:38 | RADIOLOGY REPORT (SQ) ---
EXAM DESCRIPTION: FOOT LEFT COMPLETE COMPLETED DATE/TIME: 09/27/2018 10:51 am REASON FOR STUDY: fall, L foot/ankle pain COMPARISON: None. EXAM PARAMETERS: NUMBER OF VIEWS: Three views. TECHNIQUE: AP, lateral and oblique radiographic images acquired of the left foot. LIMITATIONS: None. FINDINGS: MINERALIZATION: Normal. BONES: No acute fracture or dislocation. No worrisome bone lesions. JOINTS: No effusion. SOFT TISSUES: No significant soft tissue swelling. No radiopaque foreign body. OTHER: No other significant finding. IMPRESSION: No fracture identified. TECHNICAL DOCUMENTATION: JOB ID: [id number] [place]-72 2010 [employer]- All Rights Reserved Reading location - IP/workstation name: [email or web address]
== END 2018-09-27 12:14 | disposition home or self-care (01) ==
LOC: ER 09:47
DX: S92.002A Unspecified fracture of left calcaneus, initial encounter for closed fracture (principal); S93.402A Sprain of unspecified ligament of left ankle, initial encounter; W17.89XA Other fall from one level to another, initial encounter; Y93.89 Activity, other specified; F17.200 Nicotine dependence, unspecified, uncomplicated; I10 Essential (primary) hypertension
CPT/HCPCS: 73610; 73630; 73650; 29515; A9270; 99283

== ENCOUNTER → 2019-08-05 | Outpatient (CLI) | payer MEDICARE, MEDICAID ==
--- NOTE | 2019-08-05 11:16 | RADIOLOGY REPORT (SQ) ---
EXAM DESCRIPTION: MRI LT UPPER JOINT WITHOUT IMAGES COMPLETED DATE/TIME: 08/05/2019 8:39 am REASON FOR STUDY: LEFT SHOULDER PAIN (M25.512) M25.512 PAIN IN LEFT SHOULDER COMPARISON: None. TECHNIQUE: Non arthrogram non contrasted MRI left shoulder images acquired and stored on PACS. Multi planar imaging to include fat sensitive sequences such as T1, water sensitive sequences such as FST2/ STIR, cartilage sensitive sequences such as FSPD/gradient-echo sequences. LIMITATIONS: None. FINDINGS: BONE MARROW AND CORTEX: No worrisome bone lesions or marrow replacement. No occult fractur es. JOINT OR BURSAL EFFUSION: No significant joint or bursal fluid. No suggestion of loose bodies. GLENO-HUMERAL ARTICULATION: Normal articulation. No subluxation. No cystic change. No osteophytes or cartilage loss. ACROMION AND AC JOINT: Type 2 acromion with os acromiale. Mild narrowing of the subacromial space sa gittal image 12. ROTATOR CUFF AND INTERVAL: A tiny undersurface partial thickness tear distal supraspinatus tendon is present, best shown on sagittal image 6 and coronal image 10. Infraspinatus, subscapularis intact. No muscle atrophy. No rotator interval tear. No rotator interval thickening to suggest adhesive capsulitis. LABRUM AND BICEPS LABRAL COMPLEX: Anterior superior labrum is diffusely small, question degenerativ e tear on axial images 6-8 and sagittal images 11-13. No paralabral cysts. Intra-articular long-hea d biceps tendon normal. Distal biceps in normal location in bicipital groove. REMAINDER OF LABRUM AND IGHL : No gross tear or paralabral cyst formation. Labral evaluation is less than optimal without joint distention. No thickening of IGHL to suggest adhesive capsulitis. PERIARTICULAR AND ADJACENT SOFT TISSUES: No masses or abnormal nodes. OTHER: No other significant finding. IMPRESSION: Tiny undersurface partial thickness tear distal supraspinatus tendon Small anterior superior glenoid labrum, worrisome for degeneration/tear. TECHNICAL DOCUMENTATION: JOB ID: [id number] 2010 [employer]- All Rights Reserved Reading location - IP/workstation name: [email or web address]
== END ==
LOC: RAD 07:37
PROVIDERS: ATTEND Internal Medicine
DX: M75.112 Incomplete rotator cuff tear or rupture of left shoulder, not specified as traumatic (principal); M25.512 Pain in left shoulder

== ENCOUNTER → 2019-10-15 | Outpatient (CLI) | payer MEDICARE, MEDICAID ==
--- NOTE | 2019-10-15 12:39 | RADIOLOGY REPORT (SQ) ---
EXAM DESCRIPTION: MRI CERVICAL SPINE WITHOUT IMAGES COMPLETED DATE/TIME: 10/15/2019 9:32 am REASON FOR STUDY: M54.12 RADICULOPATHY, CERVICAL REGION M54.12 RADICULOPATHY, CERVICAL REGION COMPARISON: None. TECHNIQUE: Sagittal and Axial imaging includes T1, T2, STIR and gradient echo sequences. LIMITATIONS: Motion artifact. FINDINGS: ALIGNMENT: Slight anterolisthesis C4 relative to C3. VERTEBRAE: Intact. BONE MARROW: Normal. No marrow replacement or reactive changes. DISCS: Desiccation multiple levels. Disc space narrowing C4-5 and C5-6. HARDWARE: None in the spine. CORD AND BASE OF BRAIN: Normal in size and signal intensity. SOFT TISSUES: No soft tissue masses. C1-C2: No significant spinal stenosis. C2-C3: No significant spinal stenosis or exit foraminal stenosis. C3-C4: Mild spinal stenosis due to disc bulge and uncovertebral arthropathy. Mild neural foraminal n arrowing bilaterally. C4-C5: Mild spinal stenosis. Severe neural foraminal narrowing bilaterally. C5-C6: Mild spinal stenosis. Moderate neural foraminal narrowing bilaterally. C6-C7: Disc bulge. No significant spinal stenosis. Moderate neural foraminal narrowing bilaterally. C7-T1: No significant spinal stenosis or exit foraminal stenosis. UPPER THORACIC: Incompletely imaged. No significant spinal stenosis or exit foraminal stenosis. OTHER: No other significant finding. IMPRESSION: Mild spinal stenosis C3- 4 through C5-6. Varying degrees of neural foraminal stenosis a s described above. TECHNICAL DOCUMENTATION: JOB ID: [id number] 2010 [employer]- All Rights Reserved Reading location - IP/workstation name: [email or web address]
== END ==
LOC: RAD 08:44
PROVIDERS: ATTEND Orthopaedic Surgery
DX: M50.123 Cervical disc disorder at C6-C7 level with radiculopathy (principal); M48.02 Spinal stenosis, cervical region
CPT/HCPCS: 72141

== ENCOUNTER 2020-02-10 10:38 | Emergency (ER) | payer MEDICARE, MEDICAID ==
[2020-02-10] MEDS ORDERED: MECLIZINE HCL 25 MG TABLET PO ONE (11:27)
[2020-02-10] MEDS ORDERED: DIPH/PERTUSS(ACELL)/TETANUS VAC/PF 0.5 ML SYR (>=10YO) IM ONE (11:28)
--- NOTE | 2020-02-10 11:30 | ER Document Report ---
ED Medical Screen (RME) - General Chief Complaint: Fall Injury Stated Complaint: FALL/FINGER PAIN,DIZZINESS Time Seen by Provider: 02/10/20 11:20 Primary Care Provider: ERIC ALCANTAR MD [Primary Care Provider] - Follow up as needed Notes: Patient states that he has had dizziness for the past week. Patient states that he thought he was reaching out for the wall last night and there was no wall there. Patient states he woke up on the floor and is uncertain if he may have passed out before hitting the floor or after. Patient is uncertain how long he may been on the floor for last night. Patient with deformity to right fourth finger. Patient complains of left-sided headache pain and facial pain. Patient denies any neck discomfort. Patient denies any chest pain or shortness of breath. Patient reports chronic cough due to smoking. Patient states injury occurred last night at 10:30 PM. Patient does have a history of hypertension and seizures. I have greeted and performed a rapid initial assessment of this patient. A comprehensive ED assessment and evaluation of the patient, analysis of test results and completion of the medical decision making process will be conducted by additional ED providers. TRAVEL OUTSIDE OF THE [place] IN LAST 30 DAYS: No - Related Data Allergies/Adverse Reactions: No Known Allergies Allergy (Verified 09/27/18 09:47) Past Medical History - Past Medical History Cardiac Medical History: Reports: Hx Hypercholesterolemia, Hx Hypertension Pulmonary Medical History: Denies: Hx Tuberculosis Neurological Medical History: Reports: Hx Seizures Renal/ Medical History: Denies: Hx Peritoneal Dialysis Psychiatric Medical History: Reports: Hx Depression - anxiety Past Surgical History: Reports: Hx Herniorrhaphy - Immunizations Hx Diphtheria, Pertussis, Tetanus Vaccination: - Unknown Physical Exam - Vital signs Vitals: Temp Pulse Resp BP Pulse Ox 97.8 F 86 16 101/66 97 02/10/20 10:42 02/10/20 10:42 02/10/20 10:42 02/10/20 10:42 02/10/20 10:42 - General General appearance: Appears well, Alert Notes: Positive deformity the right fourth finger - Respiratory Respiratory status: No respiratory distress Breath sounds: Normal - Cardiovascular Rhythm: Regular Heart sounds: S1 appreciated, S2 appreciated Course - Vital Signs Vital signs: Temp Pulse Resp BP Pulse Ox 97.8 F 86 16 101/66 97 02/10/20 10:42 02/10/20 10:42 02/10/20 10:42 02/10/20 10:42 02/10/20 10:42 Doctor's Discharge - Discharge Referrals: ERIC ALCANTAR MD [Primary Care Provider] - Follow up as needed
[2020-02-10 12:24] LABS: ABSOLUTE BASOPHILS # (AUTO) 0.1 10^3/uL (0.0-0.2); ABSOLUTE LYMPHOCYTES (AUTO) 2.1 10^3/uL (0.5-4.7); ABSOLUTE MONOCYTES (AUTO) 0.9 10^3/uL (0.1-1.4); ABSOLUTE NEUT (AUTO) 7.7 10^3/uL (1.7-8.2); BASOPHILS % (AUTO) 0.6 % (0-2); EOSINOPHILS % (AUTO) 0.3 % (0-6); HEMATOCRIT 43.4 % (37.9-51.0); HEMOGLOBIN 15.5 g/dL (13.5-17.0); LYMPHOCYTES % (AUTO) 19.1 % (13-45); MEAN CORPUSCULAR HEMOGLOBIN 32.2 pg (27.0-33.4); MEAN CORPUSCULAR HGB CONC 35.8 g/dL (32.0-36.0); MEAN CORPUSCULAR VOLUME 90 fl (80-97); MONOCYTES % (AUTO) 8.2 % (3-13); PLATELET COUNT 287 10^3/uL (150-450); RED BLOOD COUNT 4.84 10^6/uL (4.35-5.55); RED CELL DISTRIBUTION WIDTH 12.9 % (11.5-14.0); SEGMENTED NEUTROPHILS % (AUTO) 71.8 % (42-78); TOTAL CELLS COUNTED % (AUTO) 100 %; WHITE BLOOD COUNT 10.8 10^3/uL (4.0-10.5)
[2020-02-10] MEDS ORDERED: LIDOCAINE 2% INJ (20 MG/ML) 20 ML MDV INJ ONE (12:46)
[2020-02-10 12:59] LABS: ALBUMIN 4.9 g/dL (3.5-5.0); ALKALINE PHOSPHATASE 72 U/L (38-126); ANION GAP 11 (5-19); ASPARTATE AMINO TRANSFERASE 36 U/L (17-59); BILIRUBIN,DIRECT 0.2 mg/dL (0.0-0.4); BILIRUBIN,TOTAL 0.7 mg/dL (0.2-1.3); BLOOD UREA NITROGEN 27 mg/dL (7-20); CARBON DIOXIDE 28 mmol/L (22-30); CHLORIDE 96 mmol/L (98-107); GLUCOSE 116 mg/dL (75-110); POTASSIUM 4.2 mmol/L (3.6-5.0)
--- NOTE | 2020-02-10 13:29 | RADIOLOGY REPORT (SQ) ---
EXAM DESCRIPTION: CT HEAD WITHOUT IMAGES COMPLETED DATE/TIME: 02/10/2020 1:15 pm REASON FOR STUDY: fall, BARR, dizziness, facial pain COMPARISON: 06/10/2013 TECHNIQUE: Axial images acquired through the brain without intravenous contrast. Images reviewed wi th bone, brain and subdural windows. Additional sagittal and coronal reconstructions were generated. Images stored on PACS. All CT scanners at this facility use dose modulation, iterative reconstruction, and/or weight based d osing when appropriate to reduce radiation dose to as low as reasonably achievable (ALARA). [facility]: Dose Right [facility]: CareDose [facility]: Dose Right [facility]: Teradose 4D [facility]: Smart Cyber[employer] RADIATION DOSE: CT Rad equipment meets quality standard of care and radiation dose reduction techniq ues were employed. CTDIvol: 53.2 mGy. DLP: 1070 mGy-cm. mGy. LIMITATIONS: None. FINDINGS: VENTRICLES: Normal size and contour. CEREBRUM: No masses. No hemorrhage. No midline shift. No evidence for acute infarction. Normal gra y/white matter differentiation. No areas of low density in the white matter. CEREBELLUM: No masses. No hemorrhage. No alteration of density. No evidence for acute infarction. EXTRAAXIAL SPACES: No fluid collections. No masses. ORBITS AND GLOBE: No intra- or extraconal masses. Normal contour of globe without masses. CALVARIUM: No fracture. PARANASAL SINUSES: There is minimal fluid in the left maxillary sinus. SOFT TISSUES: No mass or hematoma. OTHER: No other significant finding. IMPRESSION: Minimal left maxillary sinus disease. No acute intracranial imaging findings. EVIDENCE OF ACUTE STROKE: NO. COMMENT: Quality ID # [id number]: Final reports with documentation of one or more dose reduction techniques (e.g., Automated exposure control, adjustment of the mA and/or kV according to patient size, use of iterative reconstruction technique) TECHNICAL DOCUMENTATION: JOB ID: [id number] 2010 [employer]- All Rights Reserved Reading location - IP/workstation name: [email or web address]
[2020-02-10] MEDS ORDERED: NORMAL SALINE 1000 ML 1,000 ML IV ONE (13:39)
--- NOTE | 2020-02-10 13:42 | RADIOLOGY REPORT (SQ) ---
EXAM DESCRIPTION: CHEST SINGLE VIEW IMAGES COMPLETED DATE/TIME: 02/10/2020 1:03 pm REASON FOR STUDY: fall, dizziness COMPARISON: 02/19/2018 EXAM PARAMETERS: NUMBER OF VIEWS: One view. TECHNIQUE: Single frontal radiographic view of the chest acquired. RADIATION DOSE: NA LIMITATIONS: None. FINDINGS: LUNGS AND PLEURA: No opacities, masses or pneumothorax. No pleural effusion. MEDIASTINUM AND HILAR STRUCTURES: No masses. Contour normal. HEART AND VASCULAR STRUCTURES: Heart normal in size. Normal vasculature. BONES: No acute findings. HARDWARE: None in the chest. OTHER: No other significant finding. IMPRESSION: NO ACUTE RADIOGRAPHIC FINDING IN THE CHEST. TECHNICAL DOCUMENTATION: JOB ID: [id number] 2010 [employer]- All Rights Reserved Reading location - IP/workstation name: [email or web address]
--- NOTE | 2020-02-10 13:42 | RADIOLOGY REPORT (SQ) ---
EXAM DESCRIPTION: FINGER RIGHT IMAGES COMPLETED DATE/TIME: 02/10/2020 1:03 pm REASON FOR STUDY: r 4th finger injury after fall COMPARISON: None. NUMBER OF VIEWS: Three views. TECHNIQUE: AP, lateral, and oblique images acquired of the right fourth finger. LIMITATIONS: None. FINDINGS: MINERALIZATION: Normal. BONES: No fracture is seen. There appears to be subluxation of the 4th proximal interphalangeal join t. SOFT TISSUES: No soft tissue swelling. No foreign body. OTHER: No other significant finding. IMPRESSION: Subluxation of the 4th proximal interphalangeal joint. Correlate for tendon injury appe ar COMMENT: SITE OF TRAUMA/COMPLAINT MARKED/STAMP COMPLETED: YES. TECHNICAL DOCUMENTATION: JOB ID: [id number] 2010 [employer]- All Rights Reserved Reading location - IP/workstation name: [email or web address]
--- NOTE | 2020-02-10 14:02 | ER Document Report ---
ED General - General Chief Complaint: Finger Injury Stated Complaint: FALL/FINGER PAIN,DIZZINESS Time Seen by Provider: 02/10/20 11:20 Primary Care Provider: ERIC ALCANTAR MD [Primary Care Provider] - Follow up in 3-5 days Notes: 65-year-old male presents with dizziness syncope and right ring finger deformity. The patient has had about 5 days of nausea vomiting diarrhea "the stomach flu" he describes with intermittent mild Abdominal pain but no fever. Because of this he had very little to drink or eat and has been dizzy when he standing sitting and changing positions. Does not describe spinning or vertigo did not describe nausea or vomiting or headache with dizziness. He was getting up last night and got very dizzy like he was in a blackout, put his hand out against what he thought was a door but fell against the ground bending his right ring which is now stuck in flexion. He has a mild headache now and mild chin pain after hitting his face but no appreciable bruising or swelling/finger doubl e vision or epistaxis. No malocclusion subjectively. No history of stroke but is a smoker. Denies vertigo focal coordination deficits motor or sensory deficits. TRAVEL OUTSIDE OF THE [place] IN LAST 30 DAYS: No - Related Data Allergies/Adverse Reactions: No Known Allergies Allergy (Verified 09/27/18 09:47) Past Medical History - General Information source: Patient - Social History Smoking Status: Current Every Day Smoker Smoking Education Provided: Yes - The patient ED visit today was directly related to their abuse of tobacco. Family History: Reviewed & Not Pertinent, Other - Unable to obtain - Past Medical History Cardiac Medical History: Reports: Hx Hypercholesterolemia, Hx Hypertension Pulmonary Medical History: Denies: Hx Tuberculosis Neurological Medical History: Reports: Hx Seizures Renal/ Medical History: Denies: Hx Peritoneal Dialysis Psychiatric Medical History: Reports: Hx Depression - anxiety Past Surgical History: Reports: Hx Herniorrhaphy - Immunizations Hx Diphtheria, Pertussis, Tetanus Vaccination: - Unknown Review of Systems - Review of Systems Notes: REVIEW OF SYSTEMS GEN: Denies fever, chills, weight loss ENT: Denies sore throat, nasal discharge, ear pain EYES: Denies blurry vision, eye pain, discharge CV: Denies chest pain, palpitations, edema RESP: Denies cough, shortness of breath, wheezing GI: Denies abdominal pain, nausea, vomiting, diarrhea MSK: Finger pain SKIN: Denies rash, skin lesions LYMPH: Denies swollen glands/lymph nodes NEURO: Denies, denies headache, focal weakness or numbness, dizziness PSYCH: Denies depression, suicidal or homicidal ideation PHYSICAL EXAMINATION General: No acute distress, well-nourished Head: Atraumatic, normocephalic ENT: Mouth normal, oropharynx moist, no exudates or tonsillar enlargement Eyes: Conjunctiva normal, pupils equal, lids normal Neck: No JVD, supple, no guarding CVS: Normal rate, regular rhythm, no murmurs Resp: No resp distress, equal and normal breath sounds bilaterally GI: Nondistended, soft, no tenderness to palpation, no rebound or guarding Ext: Right ring finger with with flexion deformity at the PIP joint mild swelling Back: No CVA or midline TTP Skin: No rash, warm Lymphatic: No lymphadeopathy noted Neuro: Cranial nerves II through XII are intact. Normal gait normal tandem gait normal [id number] no focal deficit deficits noted. Language is fluent speech is fluent and memory is intact. Physical Exam - Vital signs Vitals: Temp Pulse Resp BP Pulse Ox 97.8 F 86 16 101/66 97 02/10/20 10:42 02/10/20 10:42 02/10/20 10:42 02/10/20 10:42 02/10/20 10:42 Course - Re-evaluation Re-evalutation: 02/10/20 14:00 Patient presents with finger dislocation confirmed on x-ray secondary to dizziness secondary to nausea vomiting He has no focal deficits in the posterior circulation that concerns me for po sterior stroke or vertigo but this sounds more like volume depletion and positional/orthostatic dizziness Head CT negative chest x-ray negative labs are pending but coming back normal. We will give fluids. Finger has been reduced and splinted as above 02/10/20 17:13 Finger has been fixed labs are normal CT is normal patient ambulated without any dizziness at all. Reassured and discharged home to follow-up with primary care maintain good hydration etc. I have discussed with the patient there likely diagnosis, aftercare plan, follow-up plans and my usual and customary return precautions. They verbalized understanding of this. - Vital Signs Vital signs: Temp Pulse Resp BP Pulse Ox 97.9 F 73 18 112/60 99 02/10/20 15:19 02/10/20 15:19 02/10/20 15:19 02/10/20 15:19 02/10/20 15:19 - Laboratory Results Result Diagrams: 02/10/20 11:55 02/10/20 11:55 Laboratory Results Interpreted: 02/10/20 02/10/20 11:55 11:55 WBC 10.8 H Sodium 135.3 L Chloride 96 L BUN 27 H Glucose 116 H Critical Laboratory Results Reviewed: No Critical Results - Radiology Results Critical Radiology Results Reviewed: No Critical Results - EKG Interpretation by Ok EKG shows normal: Sinus rhythm Rate: Normal Rhythm: NSR - No ST depression ST elevation T wave inversions Procedures - Immobilization Right Dorsal Finger 3rd digit Pre-Proc Neuro Vasc Exam: Normal Immobilizer type: Finger splint (Static) - Prefabricated finger splint placed after reduction Performed by: Provider Post-Proc Neuro Vasc Exam: Normal Alignment checked and good: Yes - Joint Reduction/Fracture Care Right Volar Finger 3rd digit Time completed: 14:00 Consent obtained: Yes Conscious sedation: No Pre-procedure NV exam: Yes Fracture: Closed Post-procedure NV exam: Yes - Normal Post-reduction x-ray: Joint reduced Reduction attempts: 1 - Hyperflexion axial traction palpable clunk full range of motion after procedure Complications: No Discharge - Discharge Clinical Impression: Syncope Qualifiers: Syncope type: unspecified Qualified Code(s): R55 - Syncope and collapse Finger dislocation Qualifiers: Encounter type: initial encounter Qualified Code(s): S63.259A - Unspecified dislocation of unspecified finger, initial encounter Condition: Good Disposition: HOME, SELF-CARE Instructions: Dehydration ([facility]) Referrals: ERIC ALCANTAR MD [Primary Care Provider] - Follow up in 3-5 days
[2020-02-10 15:21] VITALS: BP 112/60
--- NOTE | 2020-02-10 17:55 | EKG REPORT ---
SEVERITY:- BORDERLINE ECG - SINUS RHYTHM BORDERLINE LEFT AXIS DEVIATION BORDERLINE T ABNORMALITIES, DIFFUSE LEADS : Confirmed by: Leodan Thompson MD 10-Feb-2020 17:54:52
== END 2020-02-10 15:00 | disposition home or self-care (01) ==
LOC: ER 10:38
DX: S63.259A Unspecified dislocation of unspecified finger, initial encounter (principal); R55 Syncope and collapse; W18.39XA Other fall on same level, initial encounter; F17.200 Nicotine dependence, unspecified, uncomplicated; E78.00 Pure hypercholesterolemia, unspecified; I10 Essential (primary) hypertension
CPT/HCPCS: 93005; 99285; 96360; 90471; 36415; 83735; 85025; 80053; 84484; 71045; 73140; 70450; 90715; 93010; 26770; J3490; J7030